=== PATIENT | female | born 1995 | race Two or more races ===

== ENCOUNTER 2021-03-21 16:45 | Emergency (ER) | payer OTHER ==
[~2021-03-21] VITALS: Ht 154.9 cm; Wt 54.9 kg
[~2021-03-21 16:45] MED LIST: KETO10TA2 PO; MIRALAX510 GM PO
[2021-03-21] MEDS ORDERED: PROTONIX40 MG PO (20:11)
== END 2021-03-21 20:51 | disposition home or self-care (01) ==
LOC: ER 16:45
DX: R10.11 Right upper quadrant pain (principal)